=== PATIENT | male | born 1995 | race Caucasian/White ===

== ENCOUNTER 2024-01-16 14:37 | Emergency (ER) | payer SELFPAY ==
[2024-01-16 14:39] VITALS: BP 99/57; PULSE 67; RESP 20; TEMP 36.6; O2SAT 98; BMI 24.4
--- NOTE | 2024-01-16 15:16 | US_ITS ---
FINAL REPORT CLINICAL HISTORY: left testicle pain FINDINGS: SCROTAL ULTRASOUND FINDINGS: Testes have a homogeneous structure. There is a large left-sided varicocele. Normal flow is demonstrated by Doppler exam. No significant fluid collections are present. Epididymal structures are unremarkable. IMPRESSION: Large left-sided varicocele. Reviewed, Interpreted and Dictated by Colton Espino MD Transcribed by Laurita Wells Authenticated and . [facility]
--- NOTE | 2024-01-16 15:17 | ED_ITS ---
Discharge Plan Disposition Patient Disposition: Home, Self-Care Referrals Follow up/Referrals: Matheus Gasca MD [Staff Physician] - See instructions Provider,MD Jarrett [Primary Care Provider] - See instructions Activity Restrictions/Add. Instructions Additional Instructions/Restrictions: You may follow-up with her urologist Dr. Matheus Gasca for discussion of management of your varicocele. You may be a candidate for surgical treatment if you are having pain associate with this. No other emergent medical condition identified. Clinical Impressions Clinical Impression: Left varicocele Instructions Patient Instructions: DI for Urinary Tract Infection (UTI), DI for Urinary Tract Infection in Children Discharge ED Provider: Veronica Art General Adult HPI General Chief complaint: Urogenital-Male Stated complaint: pain in groin Time Seen by Provider: 01/16/24 15:05 Mode of Arrival: Ambulatory Source of Information: Patient Limitations: No Limitations Description of Symptoms (Recalled from ER Triage Doc. by RN): pt is here today for his reproductive health pt is concerned about a left variocele. pt is flat tearful withdrawn upon triage and states he has mental health hx but denies any homicidal and suicidal thoughts or plans and does not want any medication or mental health services from us. History of Present Illness HPI narrative: Patient is a 28-year-old male presenting today with left testicle pain. States this been ongoing for several years was evaluated by different medical insurance verifier in the past and told that he may have a varicocele. However the last few days he states its gotten worse. Denies any new or different swelling or redness or fevers or purulent drainage. No history of STDs gonorrhea chlamydia etc. Additionally nursing staff in triage noted that he was very subdued and appeared very sad patient tells me that he does not want any further evaluation for this he has been seen by medical insurance verifier for mental health related issues in the past and states that he did not like the medications that he was on because they made him angry. He denies being suicidal homicidal having any auditory or visual hallucinations and states that he does not want any further evaluation for this today. [facility] Disclaimer: The information contained in this section may have been updated after the patient was seen, as this information can be updated by other users. Social History Smoking Status: Never smoker alcohol intake: never current occupational status: other Travel in the last 8 weeks: None ROS Obtained: Yes All systems reviewed & no additional complaints except as documented Physical Exam General General appearance: alert and in no apparent distress Respiratory Respiratory exam: Present normal lung sounds bilaterally Cardiovascular Cardiovascular exam: Present regular rate exam: Present other (Left testicle is swollen not erythematous no acute edema) Neurological Exam Neurological exam: Present alert and oriented X3 Medical Decision Making Jd Inquiry Pt receiving controlled substance: No Vital Signs: 01/16/24 14:39 Temperature 97.9 F Temperature Source Oral Pulse Rate [Right Radial] 67 Respiratory Rate 20 Blood Pressure [Right Arm] 99/57 L Blood Pressure Mean [Right Arm] 71 02 Sat by Pulse Oximetry 98 Oxygen Delivery Method Room Air Lab Data Lab results reviewed: Yes I reviewed the patient's lab results. Lab Results 01/16/24 16:00: Urine Color Yellow, Urine Appearance Clear, Urine pH 6.0, Ur Specific Vista >= 1.030, Urine Protein Negative, Urine Glucose (UA) Negative, Urine Ketones Negative, Urine Blood Negative, Urine Nitrate Negative, Urine Bilirubin Negative, Urine Urobilinogen 0.2, Ur Leukocyte Esterase Negative Orders (Tests/Meds): ORDERS Category Date Time Status UA [Urinalysis and Microscopic] Stat Lab 01/16/24 16:00 Results US scrotum [US Testicular] Stat Ultrasound 01/16/24 15:16 Completed Medical Decision Narrative: 28-year-old left testicle pain left testicle is moderately enlarged in comparison with the right differential is broad and includes varicocele hydrocele normal testicular anatomy. Unlikely to be testicular torsion. Orchitis and epididymitis are on the differential. Ultrasound has been ordered. Additionally patient is very subdued but he is not homicidal suicidal or having any evidence of psychosis. No further intervention is warranted in the ED at the moment. Regarding this. Reassessment 439 patient remained stable. Ultrasound returned which shows a large left-sided varicocele and given referral to our urologist to discuss surgical management if he would like. No other diagnosis was found on ultrasound today. Patient was discharged in stable condition. Urinalysis unremarkable. Critical Care Critical Care Time Critical Care Time: No
--- NOTE | 2024-01-16 15:22 | PC.NURSE ---
pt out of room gone to US
--- NOTE | 2024-01-16 15:58 | PC.NURSE ---
pt back in room from
[2024-01-16 16:07] LABS: Microscopic, Urine URINE MICROSCOPIC (MICROSCOPIC)
[2024-01-16 16:13] LABS: Appearance,Urine CLEAR (Clear); Bilirubin,Urine Negative (Negative); Blood, Urine Negative (Negative); Color,Urine YELLOW (Yellow); Glucose,Urine (UA) Negative (Negative); Ketones,Urine Negative (Negative); Leukocyte Esterase,Urine Negative (Negative); Nitrate,Urine Negative (Negative); Protein,Urine Negative (Negative); Specific Gravity, Urine >= 1.030 (1.005-1.030); Urobilinogen,Urine 0.2 EU/dl (0.2)
[2024-01-16 16:40] LABS: WBC,Urine Occasional #/hpf (0-3)
[2024-01-16 16:45] VITALS: BP 100/60; PULSE 71; RESP 18; TEMP 36.8; O2SAT 99
[2024-01-18 20:10] LABS: Neisseria gonorrhoeae, NAA Negative (Negative)
== END 2024-01-16 16:50 | disposition home or self-care (01) ==
PROVIDERS: Emergency Provider Student in an Organized Health Care Education/Training Program
DX: I86.1 Scrotal varices (principal); N50.812 Left testicular pain; R45.89 Other symptoms and signs involving emotional state
CPT/HCPCS: 76870; 81001; 87491; 87591; 99284